=== PATIENT | female | born 1990 | race African-American/Black ===

== ENCOUNTER → 2022-08-10 10:52 | Outpatient (CLI) | payer BC, SELFPAY ==
[2022-08-10 12:58] LABS: Basophils # 0.1 K/mm3 (0-0.2); Basophils % 0.8 % (0.1-2.0); Eosinophils # 0.2 K/mm3 (0.0-0.4); Eosinophils % 2.4 % (0.1-12.0); Hematocrit 41.7 % (37.0-47.0); Hemoglobin 13.9 g/dL (12.2-16.2); Lymphocytes # 2.9 K/mm3 (0.7-4.5); Lymphocytes % 35.6 % (10-50); Mean Corpuscular HGB Conc 33.3 g/dL (31.8-35.4); Mean Corpuscular Hemoglobin 28.2 pg (27.0-31.2); Mean Corpuscular Volume 84.6 fl (81-99); Mean Platelet Volume 8.4 fl (7.4-10.4); Monocytes # 0.2 K/mm3 (0.1-1.0); Monocytes % 2.5 % (1.7-9.3); Neutrophils # 4.7 K/mm3 (1.8-7.8); Neutrophils % 58.6 % (37.0-80.0); Platelet Count 505 K/mm3 (142-424); Red Blood Count 4.93 M/mm3 (4.20-5.40); Red Cell Distribution Width 13.8 % (11.5-17.5)
[2022-08-10 13:14] LABS: Chol/HDL Ratio 5.4 (1-3.5); Cholesterol 190 mg/dl (140-200); HDL Cholesterol 35 mg/dl (40-60); Triglycerides 120 mg/dl (30-150); VLDL Cholesterol 24 mg/dL (0-40)
[2022-08-10 13:24] LABS: Direct LDL Cholesterol 114.67 mg/dL (100-129)
[2022-08-10 13:24] LABS: HCG Qualitative, Serum Negative (Negative)
[2022-08-10 13:26] LABS: Alanine Aminotransferase 36 U/L (12-78); Albumin Level 4.8 g/dl (3.5-5.0); Alkaline Phosphatase 97 U/L (38-126); Anion Gap 12.1 mEq/L (5-15); Aspartate Amino Transferase 34 U/L (14-36); Bilirubin,Indirect 0.5 mg/dL (0.0-0.9); Bilirubin,Total 0.5 mg/dl (0.2-1.3); Bilirubin,Unconjugated 0.6 mg/dL (0.0-1.1); Blood Urea Nitrogen 11 mg/dl (7-17); Calcium 9.4 mg/dl (8.4-10.2); Carbon Dioxide 27 mmol/L (22.0-30.0); Chloride 101 mmol/L (98-107); Estimated Glomerular Filt Rate 97 ml/min (>60); GFR (African American) 117 ML/MIN (>60); Glucose 128 mg/dl (74-100); Potassium 4.1 mmoL/L (3.5-5.1); Sodium 136 mmol/L (136-145)
[2022-08-10 13:31] LABS: Hemoglobin A1C 6.8 % (4.0-6.0)
[2022-08-10 13:41] LABS: Free T4 (Free Thyroxine) 1.35 ng/dl (0.78-2.19)
[2022-08-10 13:57] LABS: Thyroid Stimulating Hormone 1.18 uIU/mL (0.465-4.68)
== END ==
LOC: LAB 10:54
PROVIDERS: Visit Provider Nurse Practitioner Family
DX: R06.00 Dyspnea, unspecified (principal); R00.2 Palpitations; R94.31 Abnormal electrocardiogram [ECG] [EKG]; E11.9 Type 2 diabetes mellitus without complications; E66.9 Obesity, unspecified; Z68.41 Body mass index [BMI] 40.0-44.9, adult
CPT/HCPCS: 36415; 80048; 80061; 80076; 83036; 84439; 84443; 84703; 85025

== ENCOUNTER → 2022-09-06 09:21 | Outpatient (CLI) | payer BC, SELFPAY ==
--- NOTE | 2022-09-06 09:22 | CA_ITS ---
APPROVED REPORT Exam: Exercise Treadmill Technologist: Jeannie Benitez Ht: 5 ft 2 in Wt: 234 lbs BSA: 2.04 m2 HR: 90 bpm BP: 118/85 mmHg Indications: Dyspnea Medical History Medications: Zolpidem,,,,, Hydroxyzine,,,,, Stress Test Details Test: Bernie HR Resting HR: 101 bpm Max Heart Rate (APMHR): 188.726852 bpm Max HR Achieved: 188 bpm Target HR (85% APMHR): 159.532601 bpm % of APMHR: 100.00 Recovery HR: 120 bpm BP Resting BP: 118.0/85.0 mmHg Max BP: 170.0/90.0 mmHg Recovery BP: 128.0/81.0 mmHg ECG Resting ECG: Normal sinus rhythm Clinical Reason for Termination: Dyspnea Fatigue Exercise duration: 08:00 min Highest Stage Achieved: Exercise capacity: 10.1 METs Stress ECG Conclusion Negative stress test. Patient exercised on a bernie protocol for 8 minutes to peak heart rate of 188 beats per minute (target heart rate 160 beats per minute) without chest pain, ST segment changes or arrhythmias. Total METS 10.1 with peak blood pressure of 170/90 mm Hg. No imaging. Test Summary REST . . . . . . . Sitting REST . . . . . . . Standing REST 07:47 0.0 0.0 101 . 118/ 85 . . Stage 1 01:00 10.0 1.7 129 . . . . Stage 1 02:00 10.0 1.7 139 . . . . Stage 1 03:00 10.0 1.7 148 . 160/ 88 . . Stage 2 01:00 12.0 2.5 156 . . . . Stage 2 02:00 12.0 2.5 167 . . . . Stage 2 03:00 12.0 2.5 170 . 170/ 90 . . Stage 3 01:00 14.0 3.4 180 . . . . Stage 3 02:00 14.0 3.4 186 . . . Stop exercise at 08:00 RECOVERY 01:00 0.0 0.0 171 . . . . RECOVERY 02:00 0.0 0.0 152 . 168/ 89 . . RECOVERY 03:00 0.0 0.0 139 . 168/ 89 . . RECOVERY 04:00 0.0 0.0 125 . 134/ 83 . . RECOVERY 05:00 0.0 0.0 127 . 134/ 83 . . RECOVERY 06:00 0.0 0.0 119 . 145/ 94 . . RECOVERY 07:00 0.0 0.0 118 . 145/ 94 . . RECOVERY 08:00 0.0 0.0 119 . 128/ 81 . . RECOVERY 09:00 0.0 0.0 117 . 128/ 81 . . RECOVERY 10:00 0.0 0.0 120 . 125/ 86 . . RECOVERY 11:00 0.0 0.0 121 . 125/ 86 . . RECOVERY 11:23 0.0 0.0 119 . 125/ 86 . . Electronically signed by : Omid Mary MD 09/13/2022 10:43:30
== END ==
PROVIDERS: Visit Provider Nurse Practitioner Family
DX: R06.00 Dyspnea, unspecified (principal); R00.2 Palpitations; E11.9 Type 2 diabetes mellitus without complications; E66.9 Obesity, unspecified; R94.31 Abnormal electrocardiogram [ECG] [EKG]; Z79.84 Long term (current) use of oral hypoglycemic drugs; Z68.41 Body mass index [BMI] 40.0-44.9, adult
CPT/HCPCS: 93017; 93306